=== PATIENT | male | born 1970 | race Caucasian/White ===

== ENCOUNTER 2016-04-14 17:06 | Emergency (ER) | payer SELFPAY ==
[~2016-04-14] VITALS: Ht 162.6 cm; Wt 63.5 kg
[2016-04-14 17:06] VITALS: BP 118/77
[2016-04-14] MEDS ORDERED: IBUPROFEN 600 MG TABLET PO ONE ×2 (17:55→18:00)
== END 2016-04-14 19:56 | disposition home or self-care (01) ==
LOC: ER 17:12
DX: S93.491A Sprain of other ligament of right ankle, initial encounter (principal); F17.210 Nicotine dependence, cigarettes, uncomplicated; W18.39XA Other fall on same level, initial encounter; Y93.89 Activity, other specified; Y92.480 Sidewalk as the place of occurrence of the external cause; Y99.8 Other external cause status
CPT/HCPCS: 73610; 99284; A4606; Z7610

== ENCOUNTER 2016-10-07 07:26 | Emergency (ER) | payer MEDICAID ==
[~2016-10-07] VITALS: Ht 160 cm; Wt 64.4 kg
[2016-10-07] MEDS ORDERED: LINA1TAB7 PO (07:47)
--- NOTE | 2016-10-07 07:57 | NUR ---
PT REC'D TO ER C/O HIGH SUGAR AND BLURRED VISION FOR ONE DAY AWAITING EVALUATION BY ER PROVIDER.
[2016-10-07] MEDS ORDERED: INSULIN REGULAR, HUMAN 100 UNIT/ML 10 ML VIAL ONE (08:24)
--- NOTE | 2016-10-07 08:27 | NUR ---
PT ACCU CK 266 MED ORDERED REG INSULIN 4 UNITS GIVEN LEFT DELTOID SQ NOW
[2016-10-07] MEDS ORDERED: INSULIN REGULAR, HUMAN 100 UNIT/ML 10 ML VIAL SQ ONE (08:30)
[2016-10-07 08:56] VITALS: BP 124/70
--- NOTE | 2016-10-07 08:57 | NUR ---
PT. VERBALIZED UNDERSTANDING OF AFTERCARE INSTRUCTIONS.Patient discharged to home in stable condition. Written and verbal after care instructions given. Patient verbalizes understanding of instruction.
== END 2016-10-07 08:58 | disposition home or self-care (01) ==
LOC: ER 07:27
DX: E11.65 Type 2 diabetes mellitus with hyperglycemia (principal); R05 Cough; F17.200 Nicotine dependence, unspecified, uncomplicated
CPT/HCPCS: 71020; 82962 ×2; 96372; 99284; A4606; J1815; Z7610

== ENCOUNTER 2016-10-19 20:48 | Inpatient (IN) | payer MEDICAID ==
[~2016-10-19] VITALS: Ht 160 cm; Wt 66.7 kg
[~2016-10-19 20:48] MED LIST: LINA1TAB7 PO
[2016-10-19] MEDS ORDERED: ONDANSETRON HCL/PF 4 MG/2 ML VIAL ONE (21:15)
[2016-10-19 21:23] LABS: BASOPHILS # (AUTO) 0.1 /CMM (0.0-0.2); BASOPHILS % (AUTO) 0.5 % (0.0-2.0); EOSINOPHILS # (AUTO) 0.4 /CMM (0.0-0.7); EOSINOPHILS % (AUTO) 2.3 % (0.0-6.0); HEMATOCRIT 46 % (39-51); HEMOGLOBIN 15.5 g/dL (13.5-17.5); LYMPHOCYTES # (AUTO) 4.4 /CMM (0.8-4.8); LYMPHOCYTES % (AUTO) 27.4 % (20.0-44.0); MEAN CORPUSCULAR HEMOGLOBIN 29 PG (26.0-33.0); MEAN CORPUSCULAR HGB CONC 34 g/dl (31.0-36.0); MEAN CORPUSCULAR VOLUME 86 fL (80-96); MONOCYTES % (AUTO) 6.1 % (2.0-12.0); NEUTROPHILS % (AUTO) 63.7 % (43.0-81.0); PLATELET COUNT (AUTO) 420 /CMM (150-450); RDW COEFFICIENT OF VARIATION 12.5 (11.5-15.0); RED BLOOD CELL COUNT(AUTO) 5.39 MIL/uL (4.5-6.0); WHITE BLOOD COUNT (AUTO) 15.9 K/uL (4.3-11.0)
--- NOTE | 2016-10-19 21:24 | NUR ---
PT SEEN BY PA FOR EVAL FOR ABD PAIN WITH N/V. VSS. IV ACCESS STARTED, BLOOD DRAWN FOR LABS. PT MEDICATED ORDERED. SAFETY AND COMFORT MEASURES PROVIDED. WILL MONITOR.
[2016-10-19] MEDS ORDERED: ONDANSETRON HCL/PF 4 MG/2 ML VIAL IVP ONE (21:30)
[2016-10-19] MEDS ORDERED: IV NS 0.9% 1,000 ML BAG IV ONE (21:30)
[2016-10-19 21:31] LABS: CALCIUM, SERUM 9.3 mg/dL (8.5-10.1); CREATININE 1.1 mg/dL (0.6-1.3); POTASSIUM 3.3 mmol/L (3.5-5.1)
[2016-10-19 21:36] LABS: ALBUMIN 3.7 g/dL (3.4-5.0); BILIRUBIN,DIRECT 0.1 mg/dL (0.0-0.2); BILIRUBIN,TOTAL 0.3 mg/dL (0.2-1.0); TOTAL PROTEIN, SERUM 6.9 g/dL (6.4-8.2)
[2016-10-19] MEDS ORDERED: POTASSIUM CHLORIDE 20 MEQ TAB.PRT.SR PO ONE ×2 (22:30→22:38)
[2016-10-19] MEDS ORDERED: MORPHINE SULFATE INJ 4 MG/ML DISP.SYRIN ONE (22:38)
[2016-10-19] MEDS: MORPHINE SULFATE INJ 2 MG/ML DISP.SYRIN IV ONE ×2 (22:41→22:47)
--- NOTE | 2016-10-19 22:59 | NUR ---
REPORT GIVEN TO HONG OLIVER FOR 322-2
[2016-10-19] MEDS ORDERED: PIPERACILLIN /TAZOBACTAM 3.375 G in IV D5W 50 ML IV ONE (23:00)
[2016-10-19] MEDS ORDERED: PIPERACILLIN /TAZOBACTAM 3.375 G VIAL IV ONE (23:04)
[2016-10-19] MEDS ORDERED: MORPHINE SULFATE INJ 2 MG/ML DISP.SYRIN IV PRN (23:30)
[2016-10-19] MEDS ORDERED: ONDANSETRON HCL/PF 4 MG/2 ML VIAL IVP PRN (23:30)
[2016-10-19] MEDS ORDERED: Z GUARD REMEDY 2 OZ OINT TP PRN (23:30)
[2016-10-19] MEDS ORDERED: PIPERACILLIN /TAZOBACTAM 4.5 G in IV D5W 50 ML IV SCH (23:30)
--- NOTE | 2016-10-19 23:40 | NUR ---
PT REFUSED NGT INSERTION, EDUCATION PROVIDED ON IMPORTANCE OF THE SAID PROCEDURE. RISKS AND BENEFITS EXPLAINED, PT VERBALIZES UNDERSTANDING. ALL QUESTIONS ANSWERED. PA MADE AWARE.
[2016-10-19 23:45] VITALS: BP 121/77
--- NOTE | 2016-10-19 23:45 | NUR ---
RN OPEN NOTES RECEIVED PATIENT FROM ER VIA [facility] WITH FAMILY AT BEDSIDE. A/O X4. NO SIGNS OF DISTRESS OR DISCOMFORT. BREATHING EVEN AND UNLABORED. IV ACCESS IN RAC PATENT AND INTACT, NO SIGNS OF REDNESS OR INFILTRATION. ORIENTED PATIENT TO UNIT AND ROOM. BED IN LOW LOCKED POSITION WITH SIDE RAILS X2. CALL LIGHT WITHIN REACH. WILL CONTINUE TO MONITOR.
--- NOTE | 2016-10-20 | NUR ---
RN NOTES INFORMED OF CRITICAL LAB VALUE: LACTIC ACID 2.2. NO NEW ORDERS GIVEN. WILL CONTINUE TO MONITOR.
--- NOTE | 2016-10-20 00:10 | NUR ---
RN NOTES DR. SAINZ AT BEDSIDE.
[2016-10-20] MEDS ORDERED: PIPERACILLIN /TAZOBACTAM 2.25 G VIAL IV ONE (00:21)
[2016-10-20] MEDS ORDERED: PANTOPRAZOLE 40 MG VIAL ONE (00:22)
--- NOTE | 2016-10-20 01:00 | NUR ---
RN NOTES ATTEMPTED Addendum: 10/20/16 at 4122 by JAMES WYNN RN ERROR
--- NOTE | 2016-10-20 01:00 | NUR ---
RN NOTES ATTEMPTED NGT INSERTION, WAS ABLE TO FULLY INSERT NGT BUT PATIENT IMMEDIATELY PULLED IT OUT STATING HE COULD NOT BREATH. PATIENT DID NOT EXHIBIT ANY SIGNS OF DISTRESS, AND WAS ACTUALLY COUGHING AND SPITTING UP DURING INSERTION. RN KASH AT BEDSIDE FOR INTERPRETATION. PATIENT EDUCATION REINFORCED ON NEED FOR NGT AND PATIENT REFUSES RE-ATTEMPT AT THIS TIME. EDUCATED PATIENT TO REMAIN WITH HOB ELEVATED. PATIENT AND VERBALIZE UNDERSTANDING. MD MADE AWARE. WILL CONTINUE TO MONITOR.
[2016-10-20] MEDS: IV NS 0.9% 1,000 ML IV PRN ×2 (01:06→11:23)
[2016-10-20] MEDS: PANTOPRAZOLE 40 MG VIAL IV SCH ×2 (01:06→08:29)
--- NOTE | 2016-10-20 06:53 | NUR ---
RN CLOSING NOTES PATIENT AWAKE IN BED WITH FAMILY AT BEDSIDE. A/O X4. NO SIGNS OF DISTRESS OR DISCOMFORT. BREATHING EVEN AND UNLABORED. IV ACCESS IN RAC WITH NS INFUSING, PATENT AND INTACT, NO SIGNS OF REDNESS OR INFILTRATION. ALL NEEDS MET. NO SIGNIFICANT CHANGES THROUGH THE NIGHT. BED IN LOW LOCKED POSITION WITH SIDE RAILS X2. CALL LIGHT WITHIN REACH. WILL ENDORSE TO AM SHIFT FOR LORENZA.
--- NOTE | 2016-10-20 07:10 | NUR ---
RN NOTES PT IS AWAKE, SITTING IN BED WITH AT BEDSIDE. PT ON RA, NO SOB OR SIGNS OF DISTRESS NOTED. IV ON RAC INTACT AND PATENT. SAFETY MEASURES ARE IN PLACE, CALL LIGHT IS IN REACH. WILL CONTINUE TO MONITOR.
[2016-10-20 07:28] LABS: BASOPHILS # (AUTO) 0.1 /CMM (0.0-0.2); BASOPHILS % (AUTO) 0.5 % (0.0-2.0); EOSINOPHILS # (AUTO) 0.6 /CMM (0.0-0.7); EOSINOPHILS % (AUTO) 3.9 % (0.0-6.0); HEMATOCRIT 44 % (39-51); HEMOGLOBIN 14.4 g/dL (13.5-17.5); LYMPHOCYTES # (AUTO) 2.8 /CMM (0.8-4.8); LYMPHOCYTES % (AUTO) 18.7 % (20.0-44.0); MEAN CORPUSCULAR HEMOGLOBIN 29 PG (26.0-33.0); MEAN CORPUSCULAR HGB CONC 33 g/dl (31.0-36.0); MEAN CORPUSCULAR VOLUME 88 fL (80-96); MONOCYTES # (AUTO) 0.7 /CMM (0.1-1.30); MONOCYTES % (AUTO) 4.5 % (2.0-12.0); NEUTROPHILS # (AUTO) 10.7 /CMM (1.8-8.9); NEUTROPHILS % (AUTO) 72.4 % (43.0-81.0); PLATELET COUNT (AUTO) 374 /CMM (150-450); RDW COEFFICIENT OF VARIATION 13.9 (11.5-15.0); RED BLOOD CELL COUNT(AUTO) 4.98 MIL/uL (4.5-6.0); WHITE BLOOD COUNT (AUTO) 14.8 K/uL (4.3-11.0)
[2016-10-20 07:51] LABS: ALBUMIN 3.2 g/dL (3.4-5.0); BILIRUBIN,TOTAL 0.5 mg/dL (0.2-1.0); CREATININE 1.2 mg/dL (0.6-1.3); MAGNESIUM 1.8 mg/dL (1.8-2.4); PHOSPHORUS 3.4 mg/dL (2.5-4.9); POTASSIUM 4.1 mmol/L (3.5-5.1); TOTAL PROTEIN, SERUM 6.3 g/dL (6.4-8.2)
[2016-10-20] MEDS ORDERED: SIMV20TA6 PO (07:53)
[2016-10-20 08:00] VITALS: BP 104/74
[2016-10-20] MEDS ORDERED: PIPERACILLIN /TAZOBACTAM 3.375 G in IV D5W 50 ML IV SCH (08:00)
[2016-10-20] MEDS: PIPERACILLIN /TAZOBACTAM 3.375 G in IV D5W 50 ML IV SCH ×3 (08:29→17:54)
[2016-10-20] MEDS ORDERED: DIATR MEGLU/DIATRIZOATE SODIUM 120 ML BOTTLE (GASTROGRAPHIN) ONE (12:02)
--- NOTE | 2016-10-20 14:50 | NUR ---
Patient lives at home with family, he is ambulatory and independent with adl's prior to admission. Has good family support. Current plan is to return home upon discharge. Addendum: 10/20/16 at 1451 by STEPHEN ANDERS RN Amended: Links added.
[2016-10-20 16:00] VITALS: BP 105/73
--- NOTE | 2016-10-20 18:36 | NUR ---
RN NOTES PT IS SITTING IN BED COMFORTABLY, WITH FAMILY AT BEDSIDE. IV ON RAC INTACT AND RUNNING NS AT 150 ML/HR. PT ON RA, NO SOB OR DISTRESS NOTED. PT HAD MULTIPLE LIQUID BOWEL MOVEMENTS TODAY, MD AWARE. PT TOLERATING CLEAR LIQUID DIET. PT WAS ABLE TO SHOWER TODAY. WILL ENDORSE TO WALLPAPER HANGER HELPER RN FOR CONTINUITY OF CARE.
[2016-10-20 20:00] VITALS: BP 99/70
--- NOTE | 2016-10-20 20:00 | NUR ---
RECEIVED PATIENT IN BED, ALERT AND ORIENTED X4, CALM, NO SOB, NO RESPIRATORY DISTRESS, NO COMPLAIN OF ABDOMINAL PAIN, LUNG SOUNDS ARE CLEAR, ON ROOM AIR, TOLERATING WELL, RAC PERIPHERAL LINE IS PATENT AND INFUSING WELL, REPORTED BY AM NURSE, PATIENT HAD BOUTS OF DIARRHEA. ON CLEAR LIQUID, COMPLIANT WITH DIET. NEEDS ATTENDED, FAMILY AT THE BEDSIDE. CALL LIGHT WITHIN REACH.
--- NOTE | 2016-10-20 21:30 | NUR ---
NOTIFIED DR. SAINZ REGARDING EPISODES OF DIARRHEA, NO NEW ORDER
[2016-10-21] MEDS: PIPERACILLIN /TAZOBACTAM 3.375 G in IV D5W 50 ML IV SCH ×2 (00:48→05:33)
[2016-10-21] MEDS: IV NS 0.9% 1,000 ML IV PRN (00:49)
[2016-10-21 06:35] LABS: BASOPHILS % (AUTO) 0.2 % (0.0-2.0); EOSINOPHILS # (AUTO) 0.8 /CMM (0.0-0.7); EOSINOPHILS % (AUTO) 6.3 % (0.0-6.0); HEMATOCRIT 41 % (39-51); HEMOGLOBIN 13.6 g/dL (13.5-17.5); LYMPHOCYTES # (AUTO) 3.8 /CMM (0.8-4.8); LYMPHOCYTES % (AUTO) 31.2 % (20.0-44.0); MEAN CORPUSCULAR HEMOGLOBIN 29 PG (26.0-33.0); MEAN CORPUSCULAR HGB CONC 33 g/dl (31.0-36.0); MEAN CORPUSCULAR VOLUME 88 fL (80-96); MONOCYTES # (AUTO) 0.9 /CMM (0.1-1.30); NEUTROPHILS # (AUTO) 6.7 /CMM (1.8-8.9); NEUTROPHILS % (AUTO) 55.3 % (43.0-81.0); PLATELET COUNT (AUTO) 321 /CMM (150-450); RDW COEFFICIENT OF VARIATION 13.7 (11.5-15.0); RED BLOOD CELL COUNT(AUTO) 4.68 MIL/uL (4.5-6.0); WHITE BLOOD COUNT (AUTO) 12.1 K/uL (4.3-11.0)
[2016-10-21 06:49] LABS: POTASSIUM 3.7 mmol/L (3.5-5.1)
--- NOTE | 2016-10-21 06:53 | NUR ---
PATIENT IS ALERT AND AWAKE, NO SOB, TOLERATING WELL, SPO2 95%, NO COMPLAIN OF ABDOMINAL PAIN, COMPLIANT WITH CLEAR LIQUID DIET. RIGHT AC PERIPHERAL LINE IS INFUSING WELL, HAD X3 BM, ALL DUE MEDICATIONS GIVEN, CALL LIGHT WITHIN REACH.
--- NOTE | 2016-10-21 07:30 | NUR ---
RECEIVED PT. ALERT AND ORIENTED X4.IV INFUSING,VS STABLE.NO COMPLAINTS OFFERED.
[2016-10-21 08:00] VITALS: BP 113/64
[2016-10-21] MEDS: PANTOPRAZOLE 40 MG VIAL IV SCH (09:04)
[2016-10-21] MEDS ORDERED: HYDR-552 PO (09:35)
[2016-10-21] MEDS ORDERED: ONDA4TAB8 SL (09:38)
--- NOTE | 2016-10-21 11:30 | NUR ---
SUPERVISOR NUT PROCESSING MY ORTIZ IN TO SEE PT. DISCHARGE ORDER WRITTEN. IN TO VISIT.
--- NOTE | 2016-10-21 12:45 | NUR ---
DC INSTRUCTIONS GIVEN.HEP LOCK OUT.BELONGING SHEET SIGNED.AWARE OF PRESCRIPTIONS FAXED TO PT,S PHARMACY.AWARE TO HOLD METFORMIN TILL FOLLOWING UP WITH PRIVATE MD.PT. AMBULATED TO LOBBY BY DEPARTMENT OF NATURAL RESOURCES OFFICER,ACCOMPANIED BY AND FAMILY.
== END 2016-10-21 12:45 | disposition home or self-care (01) | DRG 720 ==
LOC: ER 20:50 → MED 22:56
PROVIDERS: ADMIT Internal Medicine; ATTEND Internal Medicine
DX: A41.9 Sepsis, unspecified organism (principal); K85.30 Drug induced acute pancreatitis without necrosis or infection; K27.9 Peptic ulcer, site unspecified, unspecified as acute or chronic, without hemorrhage or perforation; E11.9 Type 2 diabetes mellitus without complications; E87.6 Hypokalemia; D72.829 Elevated white blood cell count, unspecified; K29.80 Duodenitis without bleeding; K21.9 Gastro-esophageal reflux disease without esophagitis; F17.200 Nicotine dependence, unspecified, uncomplicated; Z79.4 Long term (current) use of insulin; F10.21 Alcohol dependence, in remission; T38.3X5A Adverse effect of insulin and oral hypoglycemic [antidiabetic] drugs, initial encounter; Y92.009 Unspecified place in unspecified non-institutional (private) residence as the place of occurrence of the external cause
CPT/HCPCS: 36415; 71250-TC; 74000-TC; 74250-TC; 80048-TC; 80053-TC; 80076-TC; 82272-TC; 82962-TC; 83605-TC; 83690-TC; 83735-TC; 84100-TC; 85025-TC; 87040-TC; 87081-TC; A4606; C9113; J2270; J2405; J2543; J7030; J7060; Q9963; Z7610

== ENCOUNTER 2016-10-23 23:46 | Emergency (ER) | payer MEDICAID ==
[~2016-10-23] VITALS: Ht 160 cm; Wt 68.0 kg
[~2016-10-23 23:46] MED LIST changes: +HYDR-552 PO; -LINA1TAB7 PO; +ONDA4TAB8 SL; +SIMV20TA6 PO
--- NOTE | 2016-10-24 00:45 | NUR ---
PT A/OX4 BREATHING EFFORTLESSLY ON ROOM AIR, PT STATES HE HAS BEEN HVAING DIARRHEA X 8 DAYS, PT DENIES ANY PAIN AT THIS TIME, PT DENIES N/V, PT PUT ON MONITOR, IN GOWMD Jamari MADE AWARE WILL CONTINUE TO MONITOR.
[2016-10-24 03:34] VITALS: BP 115/74
== END 2016-10-24 03:34 | disposition home or self-care (01) ==
LOC: ER 23:53
DX: R19.7 Diarrhea, unspecified (principal); K86.1 Other chronic pancreatitis; F10.10 Alcohol abuse, uncomplicated; E11.9 Type 2 diabetes mellitus without complications; K21.9 Gastro-esophageal reflux disease without esophagitis; F17.200 Nicotine dependence, unspecified, uncomplicated
CPT/HCPCS: A4606; Z7610

== ENCOUNTER 2017-05-06 15:08 | Emergency (ER) | payer MEDICAID ==
[~2017-05-06] VITALS: Ht 160 cm; Wt 71.7 kg
[2017-05-06 15:12] VITALS: BP 118/74
[2017-05-06] MEDS ORDERED: IBUPROFEN 400 MG TABLET PO ONE (15:30)
[2017-05-06] MEDS ORDERED: IBUPROFEN 400 MG TABLET ONE (15:32)
== END 2017-05-06 15:43 | disposition home or self-care (01) ==
LOC: ER 15:13
DX: S13.9XXA Sprain of joints and ligaments of unspecified parts of neck, initial encounter (principal); S23.3XXA Sprain of ligaments of thoracic spine, initial encounter; K21.9 Gastro-esophageal reflux disease without esophagitis; E11.9 Type 2 diabetes mellitus without complications; F17.200 Nicotine dependence, unspecified, uncomplicated; V49.60XA Unspecified car occupant injured in collision with unspecified motor vehicles in traffic accident, initial encounter; Y93.89 Activity, other specified; Y92.413 State road as the place of occurrence of the external cause; Y99.8 Other external cause status
CPT/HCPCS: A4606; Z7610

== ENCOUNTER 2017-07-17 12:51 | Emergency (ER) | payer MEDICAID ==
[~2017-07-17] VITALS: Ht 162.6 cm; Wt 72.6 kg
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
[2017-07-17] MEDS ORDERED: LIDOCAINE HCL/PF 1% 30 ML VIAL TP ONE (14:00)
[2017-07-17] MEDS ORDERED: TDAP [DIPH/PERTUSSIS/TET] 0.5 ML VIAL IM ONE ×2 (14:00→14:17)
[2017-07-17] MEDS ORDERED: ACETAMINOPHEN ES 500 MG TABLET ONE (14:17)
[2017-07-17] MEDS ORDERED: IBUPROFEN 600 MG TABLET PO ONE ×2 (14:17→14:30)
[2017-07-17] MEDS ORDERED: ACETAMINOPHEN ES 500 MG TABLET PO ONE (14:30)
--- NOTE | 2017-07-17 14:56 | NUR ---
Patient discharged to home in stable condition. Written and verbal after care instructions given. Patient verbalizes understanding of instruction.
[2017-07-17 14:58] VITALS: BP 126/88
== END 2017-07-17 14:59 | disposition home or self-care (01) ==
LOC: ER 12:56
DX: S61.212A Laceration without foreign body of right middle finger without damage to nail, initial encounter (principal); K21.9 Gastro-esophageal reflux disease without esophagitis; E11.9 Type 2 diabetes mellitus without complications; F17.200 Nicotine dependence, unspecified, uncomplicated; Z98.890 Other specified postprocedural states; W26.0XXA Contact with knife, initial encounter; Y93.89 Activity, other specified; Y92.89 Other specified places as the place of occurrence of the external cause; Y99.8 Other external cause status
CPT/HCPCS: 12002; 82962; 90471; 90715; 99283; A4606; A6402 ×2; Z7610

== ENCOUNTER 2019-04-13 16:52 | Emergency (ER) | payer MEDICAID ==
[~2019-04-13] VITALS: Ht 162.6 cm; Wt 72.6 kg
[~2019-04-13 16:52] MED LIST changes: +HYDR-4384 PO; -HYDR-552 PO; +SIMV-46 PO; -SIMV20TA6 PO
--- NOTE | 2019-04-13 17:03 | NUR ---
BIB "Fever/Headache/body aches/cough/pain in chest/stinkgy fart started yesterday", TO ER BED 11, HOOKED TO BP CUFF AND POX, CHANGED TO HOSP GOWN, WARM BLANKET PROVIDED, PATIENT AOx4 , BREATHING EVEN AND UNLABORED, AWAITING MD SALAS.
--- NOTE | 2019-04-13 17:04 | NUR ---
THRESHING MACHINE OPERATOR DEGRASSE AT BEDSIDE
[2019-04-13] MEDS ORDERED: ACETAMINOPHEN ES 500 MG TABLET ONE (17:23)
[2019-04-13] MEDS ORDERED: IBUPROFEN 400 MG TABLET ONE (17:24)
[2019-04-13] MEDS ORDERED: ACETAMINOPHEN ES 500 MG TABLET PO ONE (17:30)
[2019-04-13] MEDS ORDERED: IBUPROFEN 400 MG TABLET PO ONE (17:30)
[2019-04-13 17:34] LABS: APPEARANCE,URINE Clear (CLEAR); BILIRUBIN,URINE Negative (NEGATIVE); BLOOD, URINE Small Ery/uL (NEGATIVE); COLOR,URINE Yellow (YELLOW); KETONES,URINE Negative (NEGATIVE); LEUKOCYTE ESTERASE ,URINE Negative (NEGATIVE); NITRITE, URINE Negative (NEGATIVE); PH,URINE 5.5 (5.0-8.0); PROTEIN,URINE Negative (NEGATIVE); UGLUCOSE >=1000 mg/dL (NEGATIVE)
[2019-04-13 17:37] LABS: BACTERIA,URINE None seen /HPF (None Seen); RBC,URINE 0-2 /HPF (0-2); SQUAMOUS EPITHELIAL CELL,UR Few /HPF (None Seen); WBC,URINE 0-2 /HPF (0-3)
--- NOTE | 2019-04-13 18:51 | NUR ---
Patient discharged to home in stable condition. Written and verbal after care instructions given. Patient verbalizes understanding of instruction.
[2019-04-13 18:52] VITALS: BP 129/67
== END 2019-04-13 18:53 | disposition home or self-care (01) ==
LOC: ER 16:55
DX: R05 Cough (principal); R50.9 Fever, unspecified; R51 Headache; K21.9 Gastro-esophageal reflux disease without esophagitis; E11.9 Type 2 diabetes mellitus without complications; F17.200 Nicotine dependence, unspecified, uncomplicated; Z98.890 Other specified postprocedural states; Z79.899 Other long term (current) drug therapy
CPT/HCPCS: 71045-TC; 81000-TC

== ENCOUNTER 2022-02-24 01:25 | Emergency (ER) | payer MEDICAID, OTHER ==
[~2022-02-24] VITALS: Ht 162.6 cm; Wt 70.3 kg
--- NOTE | 2022-02-24 02:00 | NUR ---
BIBSELF C/O ABD PAIN RAD TO BACK WITH VOMITING, PER PT STARTED AROUND 1500. PT A/OX4. TOLERATING R/A WELL WITH NO RESP DISTRESS. CONNECTED PT TO POX AND MONITOR. SAFETY MEASURES IN PLACE.
--- NOTE | 2022-02-24 02:11 | NUR ---
BS ACCUCHECK 141; DR. BAUTISTA DO AWARE.
--- NOTE | 2022-02-24 02:12 | NUR ---
EMT AT PT'S BEDSIDE FOR EKG AND ACCUCHECK
--- NOTE | 2022-02-24 02:12 | NUR ---
URINE COLLECTED AND SENT TO LAB
--- NOTE | 2022-02-24 02:14 | NUR ---
IV LAC #20G S/L BLOOD COLLECTED AND SENT TO LAB
[2022-02-24] MEDS ORDERED: ONDANSETRON HCL/PF 4 MG/2 ML VIAL ONE (02:15)
[2022-02-24] MEDS ORDERED: MORPHINE SULFATE INJ 4 MG/ML DISP.SYRIN ONE (02:15)
--- NOTE | 2022-02-24 02:22 | NUR ---
PT TAKEN TO CT VIA [facility]
[2022-02-24] MEDS ORDERED: ONDANSETRON HCL/PF 4 MG/2 ML VIAL IVP ONE (02:30)
[2022-02-24] MEDS ORDERED: MORPHINE SULFATE INJ 2 MG/ML DISP.SYRIN IV ONE (02:30)
[2022-02-24] MEDS ORDERED: IV NS 0.9% 500 ML BAG IV ONE (02:30)
--- NOTE | 2022-02-24 02:35 | NUR ---
PT RETURNED TO ER BED [address]
--- NOTE | 2022-02-24 02:45 | NUR ---
IV CANNULA INFILTRATED. RE INSERT G20 ON RIGHT AC.
[2022-02-24 03:04] LABS: CALCIUM, SERUM 9.1 mg/dL (8.5-10.1); CARBON DIOXIDE 26 mmol/L (21-32); CHLORIDE 102 mmol/L (98-107); CREATININE 0.9 mg/dL (0.6-1.3); GLUCOSE 145 mg/dL (74-106); POTASSIUM 3.7 mmol/L (3.5-5.1); SODIUM SERUM 138 mmol/L (136-145); UREA NITROGEN, BLOOD 22 mg/dL (7-18)
[2022-02-24 03:06] LABS: BILIRUBIN,URINE NEGATIVE (NEGATIVE); COLOR,URINE YELLOW (YELLOW); LEUKOCYTE ESTERASE ,URINE NEGATIVE (NEGATIVE); NITRITE, URINE NEGATIVE (NEGATIVE); PH,URINE 5.5 (5.0-8.0); PROTEIN,URINE TRACE mg/dl (NEGATIVE); UGLUCOSE 1+ mg/dL (NEGATIVE); UROBILINOGEN,URINE 0.2 EU/dL (0.2)
[2022-02-24 03:11] LABS: ALANINE AMINOTRANSFERASE 28 U/L (12-78); ALKALINE PHOSPHATASE 116 U/L (46-116); ASPARTATE AMINOTRANSFERASE 22 U/L (15-37); BILIRUBIN,DIRECT 0.1 mg/dL (0.0-0.2); BILIRUBIN,TOTAL 0.6 mg/dL (0.2-1.0); LIPASE 387 U/L (73-393); TOTAL PROTEIN, SERUM 7.6 g/dL (6.4-8.2)
[2022-02-24 03:14] LABS: WBC,URINE 0-2 /HPF (0-3)
[2022-02-24 03:15] LABS: BACTERIA,URINE Rare /HPF (None Seen); SQUAMOUS EPITHELIAL CELL,UR Few /HPF (None Seen)
[2022-02-24 03:15] LABS: BASOPHILS # (AUTO) 0.1 K/uL (0.0-0.2); BASOPHILS % (AUTO) 0.3 % (0.0-2.0); EOSINOPHILS % (AUTO) 1.3 % (0.0-6.0); HEMATOCRIT 47 % (39-51); HEMOGLOBIN 15.7 g/dL (13.5-17.5); LYMPHOCYTES # (AUTO) 1.3 K/uL (0.8-4.8); LYMPHOCYTES % (AUTO) 8.4 % (20.0-44.0); MEAN CORPUSCULAR HGB CONC 33 g/dl (31.0-36.0); MEAN CORPUSCULAR VOLUME 85 fL (80-96); MONOCYTES # (AUTO) 0.5 K/uL (0.1-1.30); NEUTROPHILS # (AUTO) 13.4 K/uL (1.8-8.9); PLATELET COUNT (AUTO) 432 K/uL (150-450); RED BLOOD CELL COUNT(AUTO) 5.52 MIL/uL (4.5-6.0); WHITE BLOOD COUNT (AUTO) 15.3 K/uL (4.3-11.0)
--- NOTE | 2022-02-24 07:09 | NUR ---
REPORT GIVEN TO MELODY STEINBERG
--- NOTE | 2022-02-24 07:15 | NUR ---
RECEIVED PT FROM THAD RN AWAKE AND ALERT NO SON OR DISTRESS
--- NOTE | 2022-02-24 08:40 | NUR ---
PT TOLORATED PO INTACK NO N/V NOTED NO ABDOMINALE PAIN
--- NOTE | 2022-02-24 09:01 | NUR ---
IV removed. Catheter intact and site benign. Pressure and 4x4 applied to site. No bleeding noted.
--- NOTE | 2022-02-24 09:05 | NUR ---
Patient discharged to home in stable condition. Written and verbal after care instructions given. Patient verbalizes understanding of instruction.
[2022-02-24 09:11] VITALS: BP 135/87
== END 2022-02-24 09:13 | disposition home or self-care (01) ==
LOC: ER 01:27
DX: R10.84 Generalized abdominal pain (principal); K21.9 Gastro-esophageal reflux disease without esophagitis; R11.2 Nausea with vomiting, unspecified; E11.9 Type 2 diabetes mellitus without complications; F17.200 Nicotine dependence, unspecified, uncomplicated; Z98.890 Other specified postprocedural states; Z79.899 Other long term (current) drug therapy
CPT/HCPCS: 99285; 74176; 96374; 71045; 96361; 96375; 93005; 85025; 80048; 83690; 80076; 81001; 36415; 84484; 85730; 82962; J2270; J2405; J7040

== ENCOUNTER 2022-04-25 14:12 | Emergency (ER) | payer OTHER ==
[~2022-04-25] VITALS: Ht 157.5 cm; Wt 74.8 kg
[2022-04-25 14:28] VITALS: BP 109/72
[2022-04-25] MEDS ORDERED: IBUP-1953 PO (15:51)
== END 2022-04-25 15:55 | disposition home or self-care (01) ==
LOC: ER 14:14
DX: M25.511 Pain in right shoulder (principal); K21.9 Gastro-esophageal reflux disease without esophagitis; E11.9 Type 2 diabetes mellitus without complications; F17.200 Nicotine dependence, unspecified, uncomplicated; Z98.890 Other specified postprocedural states; Z79.899 Other long term (current) drug therapy
CPT/HCPCS: 71045-TC; 73030-TC

== ENCOUNTER 2022-12-04 19:28 | Emergency (ER) | payer OTHER ==
[~2022-12-04] VITALS: Ht 154.9 cm; Wt 72.6 kg
[~2022-12-04 19:28] MED LIST changes: +IBUP-1953 PO
[2022-12-04] MEDS ORDERED: ACETAMINOPHEN ES 500 MG TABLET ONE (20:30)
[2022-12-04] MEDS: IV NS 0.9% 1,000 ML BAG IV ONE (20:40)
[2022-12-04] MEDS: ACETAMINOPHEN ES 500 MG TABLET PO ONE (20:50)
[2022-12-04 21:04] LABS: BASOPHILS # (AUTO) 0.1 K/uL (0.0-0.2); BASOPHILS % (AUTO) 0.8 % (0.0-2.0); EOSINOPHILS # (AUTO) 0.1 K/uL (0.0-0.7); EOSINOPHILS % (AUTO) 1.7 % (0.0-6.0); HEMATOCRIT 43 % (39-51); HEMOGLOBIN 14.5 g/dL (13.5-17.5); LYMPHOCYTES # (AUTO) 0.7 K/uL (0.8-4.8); LYMPHOCYTES % (AUTO) 8.8 % (20.0-44.0); MEAN CORPUSCULAR HEMOGLOBIN 29 PG (26.0-33.0); MEAN CORPUSCULAR HGB CONC 34 g/dl (31.0-36.0); MEAN CORPUSCULAR VOLUME 85 fL (80-96); MONOCYTES # (AUTO) 0.8 K/uL (0.1-1.30); MONOCYTES % (AUTO) 9.9 % (2.0-12.0); NEUTROPHILS # (AUTO) 6.3 K/uL (1.8-8.9); NEUTROPHILS % (AUTO) 78.8 % (43.0-81.0); PLATELET COUNT (AUTO) 353 K/uL (150-450); RED BLOOD CELL COUNT(AUTO) 5.06 MIL/uL (4.5-6.0); RED CELL DISTRIBUTION WIDTH 14.1 % (11.5-15.0)
[2022-12-04 21:14] LABS: CALCIUM, SERUM 8.7 mg/dL (8.5-10.1); CARBON DIOXIDE 23 mmol/L (21-32); CHLORIDE 100 mmol/L (98-107); GLUCOSE 152 mg/dL (74-106); POTASSIUM 3.3 mmol/L (3.5-5.1); SODIUM SERUM 134 mmol/L (136-145); UREA NITROGEN, BLOOD 17 mg/dL (7-18)
[2022-12-04 21:19] LABS: ALANINE AMINOTRANSFERASE 31 U/L (12-78); ALBUMIN 3.5 g/dL (3.4-5.0); ALKALINE PHOSPHATASE 133 U/L (46-116); ASPARTATE AMINOTRANSFERASE 15 U/L (15-37); BILIRUBIN,TOTAL 0.2 mg/dL (0.2-1.0); TOTAL PROTEIN, SERUM 6.6 g/dL (6.4-8.2)
[2022-12-04] MEDS ORDERED: IBUP-1955 PO (22:20)
[2022-12-04 22:48] VITALS: BP 117/81; TEMP 100.2; O2SAT 97
== END 2022-12-04 22:48 | disposition home or self-care (01) ==
LOC: ER 19:29
DX: U07.1 COVID-19 (principal); R53.81 Other malaise; I10 Essential (primary) hypertension; K21.9 Gastro-esophageal reflux disease without esophagitis; E11.9 Type 2 diabetes mellitus without complications; F17.200 Nicotine dependence, unspecified, uncomplicated
CPT/HCPCS: 99285; 96360; 71045; 87426; 93005; 85025; 80048; 80076; 36415; 84484; J7030; C9803

== ENCOUNTER 2023-04-23 18:51 | Emergency (ER) | payer MEDICAID, OTHER ==
[~2023-04-23] VITALS: Ht 160 cm; Wt 74.8 kg
[~2023-04-23 18:51] MED LIST changes: +IBUP-1955 PO
[2023-04-23 19:07] VITALS: TEMP 98.3
[2023-04-23] MEDS ORDERED: KETOROLAC TROMETHAMINE 15 MG/ML VIAL ONE (20:28)
[2023-04-23] MEDS: KETOROLAC TROMETHAMINE 15 MG/ML VIAL IM ONE (20:32)
[2023-04-23] MEDS ORDERED: CYCL5TAB PO (21:21)
[2023-04-23] MEDS ORDERED: ACET-2605 PO (21:21)
[2023-04-23] MEDS ORDERED: IBUP-1955 PO (21:21)
[2023-04-23] MEDS ORDERED: CYCLOBENZAPRINE 10 MG TABLET ONE (21:27)
[2023-04-23] MEDS: CYCLOBENZAPRINE 10 MG TABLET PO ONE (21:29)
[2023-04-23 21:57] VITALS: BP 121/74; O2SAT 99
== END 2023-04-23 21:57 | disposition home or self-care (01) ==
LOC: ER 18:58
DX: Z04.3 Encounter for examination and observation following other accident (principal); I10 Essential (primary) hypertension; E11.9 Type 2 diabetes mellitus without complications; K21.9 Gastro-esophageal reflux disease without esophagitis; F17.200 Nicotine dependence, unspecified, uncomplicated; Z98.890 Other specified postprocedural states; Z79.899 Other long term (current) drug therapy; V89.2XXA Person injured in unspecified motor-vehicle accident, traffic, initial encounter; Y93.89 Activity, other specified; Y92.89 Other specified places as the place of occurrence of the external cause; Y99.8 Other external cause status
CPT/HCPCS: 99285; 71250; 96372; 74176; J1885

== ENCOUNTER 2025-01-06 12:14 | Emergency (ER) | payer OTHER ==
[~2025-01-06] VITALS: Ht 154.9 cm; Wt 63.0 kg
[~2025-01-06 12:14] MED LIST changes: +ACET-2605 PO; +CYCL5TAB PO
[2025-01-06 12:36] LABS: PLATELET COUNT (AUTO) 445 K/uL (150-450); RED BLOOD CELL COUNT(AUTO) 5.33 MIL/uL (4.5-6.0); RED CELL DISTRIBUTION WIDTH 13.9 % (11.5-15.0); WHITE BLOOD COUNT (AUTO) 9.5 K/uL (4.3-11.0)
[2025-01-06 12:55] LABS: CALCIUM, SERUM 9.1 mg/dL (8.5-10.1); CREATININE 1.0 mg/dL (0.6-1.3); SODIUM SERUM 141 mmol/L (136-145); UREA NITROGEN, BLOOD 13 mg/dL (7-18)
[2025-01-06 12:59] LABS: NT-PRO BNP 19 pg/mL (0-125)
[2025-01-06] MEDS: ASPIRIN 325 MG TABLET PO ONE (17:30)
[2025-01-06] MEDS ORDERED: ASPI-992 PO (17:34)
[2025-01-06 19:27] VITALS: BP 138/86; TEMP 98.2; O2SAT 97
== END 2025-01-06 18:00 | disposition left against medical advice (07) ==
LOC: ER 12:15
DX: R07.89 Other chest pain (principal); I10 Essential (primary) hypertension; R06.2 Wheezing; E11.9 Type 2 diabetes mellitus without complications; F17.200 Nicotine dependence, unspecified, uncomplicated; Z87.19 Personal history of other diseases of the digestive system
CPT/HCPCS: 36415; 71045-TC; 80048-TC; 83880; 84484-TC; 85025-TC